=== PATIENT | female | born 1935 | race Caucasian/White ===

== ENCOUNTER 2016-09-05 05:58 | Inpatient (IN) ==
[2016-09-05] MEDS ORDERED: Lidocaine -MPF 1% 2 ML VIAL ID ONE (06:23)
[2016-09-05] MEDS ORDERED: CeFAZolin Pre 2,000 MG/100 ML 2,000 MG/100 ML BAG IVPB ONE (06:23)
[2016-09-05] MEDS ORDERED: Ringers Solution, Lactated 1,000 ML IVC SCH (06:30)
[2016-09-05] MEDS ORDERED: Heparin 1,000 UNITS/500 mL NS 500 ML ONE (06:45)
[2016-09-05] MEDS ORDERED: *HR* Succinylcholine 200 MG/10 ML VIAL IVP ONE (06:49)
[2016-09-05] MEDS ORDERED: Lidocaine -MPF 4% 5 ML AMPUL ONE (06:49)
[2016-09-05] MEDS ORDERED: *HR* Propofol 200 MG/20 ML VIAL IVP ONE (06:49)
[2016-09-05] MEDS ORDERED: Lidocaine -MPF 2% 2 ML VIAL ONE (06:49)
[2016-09-05] MEDS ORDERED: Nitroglycerin 0 MG/0 ML INFUS..BTL IVC ONE (06:53)
[2016-09-05] MEDS ORDERED: NiCARdipine 2.5 MG/10 ML Syringe IVPB ONE (06:54)
[2016-09-05] MEDS ORDERED: *HR* Remifentanil 2 MG VIAL IVP ONE (06:59)
[2016-09-05] MEDS ORDERED: *HR* Phenylephrine 10 MG/ML VIAL ONE (07:01)
[2016-09-05] MEDS ORDERED: *HR* FentaNYL (PF) 100 MCG/2 ML VIAL ONE (07:03)
--- NOTE | 2016-09-05 07:11 | Anesthesia Evaluation PreOp ---
Date of Encounter: 09/05/16 Time of Encounter: 07:08 - Past History Planned Operation: Endograft Repair AAA Cardiac History: HTN, Hyperlipidemia, Arrhythmia (A-Fib), Pacemaker/ICD ([employer] pacemaker), Other (AAA (4.9 cm x 5.2 cm)) Pulmonary History: Denies Any Significant HX RENTAL AGENT History: Denies Any Significant HX Other Medical History: GERD Anesthesia History: No Prior Anesthetic Complications, Past Anesthesia Alcohol Use: none Drug use: unknown Medications and Allergies Acetaminophen [Tylenol Arthritis] 650 mg PO Q8H PRN 01/05/16 [History] Alendronate Sodium [Fosamax] 70 mg PO QWEEK 01/05/16 [History] Atenolol/Chlorthalidone [Tenoretic 100 Tablet] 1 each PO DAILY 01/05/16 [History ] Calcium Carbonate [Calcium] 600 mg PO BID 01/05/16 [History] Cholecalciferol (D-3) [Vitamin D] 2,000 unit PO DAILY 01/05/16 [History] Citalopram [CeleXA] 20 mg PO DAILY 01/05/16 [History] Gabapentin [Neurontin] 300 mg PO TID 01/05/16 [History] Omeprazole [PriLOSEC] 20 mg PO BIDAC 01/05/16 [History] Simvastatin [Zocor] 40 mg PO HS 01/05/16 [History] Warfarin [Coumadin] 4 mg PO [id number] 01/05/16 [History] Warfarin [Coumadin] 6 mg PO SUTH 01/05/16 [History] Amoxicillin/Clavulanate [Augmentin] 500 mg PO BIDWM #20 tablet 04/14/16 [Rx] Chlorpheniramine/Dextromethorp [Coricidin Hbp Cough & Cold Tab] 1 each PO Q6HR PRN #24 tablet 04/14/16 [Rx] Allergies No Known Allergies Allergy (Verified 04/14/16 09:29) - Meds/Allergy Pre-op Review Medications Reviewed: Yes Allergies Reviewed: Yes Beta Blockers on Current Med List: Yes If Beta Blockers taken, Date/Time (Last Dose taken): 09/05/2016 at 0500 Anesthesia Results - Labs Laboratory Tests 08/29/16 08/29/16 08/29/16 09:46 09:46 09:46 WBC 5.5 Hgb 13.8 Hct 41.3 Plt Count 191 PT 19.3 H INR 1.8 APTT 32.4 Sodium 134 L Potassium 3.7 BUN 19 Creatinine 1.01 - Imaging EKG: report reviewed (01/05/2016 A-Fib with RVR, NSST abnormality) Additional studies: 04/09/2013 Echo Impressions: * Atrial fibrillation. * LVEF 50%. * Normal left ventricular structure and function. * Indeterminate diastolic function due to rhythm. * Normal right ventricular structure and function. * Mild to moderate tricuspid regurgitation. * Mild pulmonary hypertension. Anesthesia Exam O2 Sat Height 1.57 m Height 1.57 m Height 1.57 m Weight 90.718 kg Weight 90.718 kg Weight 90.718 kg O2 Sat by Pulse Oximetry 96 O2 Sat by Pulse Oximetry 96 Vital Signs Temp Pulse Resp BP Pulse Ox 97.8 F 73 18 119/72 96 09/05/16 06:41 09/05/16 06:41 09/05/16 06:41 09/05/16 06:41 09/05/16 06:41 Height: 5'2'' Weight: 200 lbs NPO (# of Hours): 8 Pain Scale: 0 Pain Scale Used: Numeric (1 - 10) - HEENT Pupil (Motor): EOMI Mallampati: II Teeth: Edentulous Denture Type: Upper: Complete, Lower: Complete Oral Opening: Greater than 3 - RENTAL AGENT LOC: Oriented RENTAL AGENT Motor: Normal RUE, Normal LUE, Normal RLE, Normal LLE, Normal Face RENTAL AGENT Sensory: Normal: RUE, LUE, Face, Deficit: RLE, LLE - Cardiac Rhythm: Irregular Murmur: None - Pulmonary Breath Sounds: bilateral Clear Respiratory Effort: Symmetrical Anesthesia Assess/Plan ASA Score: 3 Modified [place] Scale for Level of Consciousness: Cooperative, oriented, and tranquil Anesthetic Plan: General Monitoring Plan: Standard Monitors, A-Line Recovery Plan: PACU
[2016-09-05] MEDS ORDERED: Heparin 1,000 UNITS/500 mL NS 1,500 ML ONE (07:20)
--- NOTE | 2016-09-05 07:21 | History & Physical Report ---
Date of Encounter: 09/05/16 Time of Encounter: 07:20 24 Hour HP Update - Instructions Instructions: If the History and Physical is less than 30 days old and was completed prior to A.M. admission and or procedure and has NOT been updated on calendar day of procedure please complete this update prior to performing procedure. - Update Patient reports changes in Medical Condition: No Changes in examination, assessment, or condition: No Changes in Medication: No Preop tests/diagnostics Reviewed: Yes Surgery Remains Indicated: Yes Consent for Planned Operative Procedure(s) Verified: Yes - Pre-Operative Checklist Preoperative Checklist Indicated: Yes Prophylactic Antibiotic Ordered: Yes Home Medications Include Beta Kandace: No Beta Kandace Taken Today (Day of Surgery): No Beta Kandace Taken Yesterday (Day Prior to Surgery): No Is VTE Prophylaxis Indicated?: Yes
[2016-09-05] MEDS ORDERED: *HR* Heparin 5,000 UNIT/ML VIAL ONE (08:55)
[2016-09-05] MEDS ORDERED: *HR* HYDROmorphone (PF) 1 MG/ML SYRINGE IVP PRN (09:38)
[2016-09-05] MEDS ORDERED: *HR* Labetalol 20 MG/4 ML SYRINGE IVP PRN (09:38)
--- NOTE | 2016-09-05 10:09 | Operative Note ---
Date of procedure: 09/05/16 Pre-op diagnosis: AAA Post-op diagnosis: same Procedure: Endovascular Repair of AAA(EVAR) using [employer] Endurant II System with modular bifurcated device (1 docking limb) Bilateral open femoral exposure Catheter placement into aorta, nonselective, bilateral Radiologic supervision and interpretation of endovascular abdominal aortic aneurysm repair Complications: none Anesthesia: GETA Surgeon: Casper Avendano Co-Surgeon: Kevin Gonzalez Estimated blood loss (cc): 100 Specimen: none Condition: stable Disposition: PACU Procedure in Detail: History Bibi Lora is an 80-year-old white female who has an abdominal aortic aneurysm that measures approximately 6 cm in diameter. This aneurysm has increased in size. The patient is on lifelong anticoagulation with Coumadin. Because of the size of the aneurysm and her anticoagulation status the patient was recommended to undergo elective endovascular repair of the abdominal aortic aneurysm. The patient now comes for this procedure. The patient does have multiple comorbidities. Procedure After informed consent was obtained the patient was taken to the operating room. General endotracheal anesthesia was established under arterial line pressure monitoring. The abdomen and groins and upper thighs were sterilely prepped and draped. A timeout protocol was observed. A 2 team surgical approach was needed for this procedure due to the patient's comorbidities and in an attempt to try to reduce the patient's. Anesthetic time and decrease blood loss as well as to facilitate complex intraoperative decision making. The common femoral arteries were exposed through oblique incisions in the groins bilaterally. Controls obtained with Vesseloops proximally and distally. The vessels were soft with excellent pulses. With this done 18-gauge needle was then punctured and a guidewire was advanced retrograde from both the left and right side. This was followed by an 8 [place] sheath and dilator. The dilator was removed and the sheath was aspirated and flushed. Heparin was administered and dose of 5000 units intravenously. A marker pigtail catheter was advanced from the right side. An aortogram was then obtained to clarify the anatomy and to ghassan the iliac bifurcation as well as the renal artery locations. With this done an Amplatz wire was exchanged through the pigtail catheter. The pigtail catheter was then placed via the left groin into the aorta. The main body device was 28 x 16 x 145 mm. This was placed via the right side and secured in an infrarenal location. The suprarenal fixation was also performed with an open stent. The covered stent graft was then deployed to the point that the docking limb was exposed. At this point the device was then cannulated from the left side. Appropriate positioning of the wire and cannulation was confirmed with the use of a contrast injection. The docking device was then selected to be a 16 x 16 x 124 mm. This was deployed into the docking portion of the main body and was extended to the distal aspect of the left common iliac artery. This was then deployed and full. The carrying device was removed and 11 [place] sheath was then inserted in the left groin. Attention was then directed back to the right side. The right main body was then completely deployed. The top cap was re -position and then the device was removed and 11 [place] sheath placed on the right groin. Balloons were then passed from both the right and left side. The stent graft was then gently expanded with the use of the balloon. A completion aortogram was then performed via pigtail catheter positioned at the suprarenal location. This demonstrated patent renal arteries bilaterally and patent iliac bifurcations bilaterally. A type II endoleak was identified through lumbar vessels. The graft itself appeared to be in excellent position and there were no complications associated with the graft. With this information although the remaining devices were then removed. The puncture sites in the groin were closed using 6-0 Prolene suture. After appropriate backbleeding and flushing the pelvic arteries were then opened and pulsatile flow was restored to the lower extremities. Excellent pulses were identified at the groin and confirmed with the use of Doppler. The wounds were then copiously irrigated with antibiotic containing solution. Hemostasis was achieved. The incisions were then closed in layers using absorbable suture. Dry sterile dressings were applied. The patient was excreted in the operating room and taken to the recovery room in stable condition. Estimated blood loss 100 mL.
--- NOTE | 2016-09-05 10:44 | Anesthesia Evaluation Post Op ---
Date of Encounter: 09/05/16 Time of Encounter: 10:43 - Vital Signs Vital Signs: Vital Signs/O2 Sat, Most Current Temp Pulse Resp BP Pulse Ox 97.7 F 61 16 149/93 100 09/05/16 10:14 09/05/16 10:34 09/05/16 10:34 09/05/16 10:34 09/05/16 10:34 - Lungs Lungs: Clear Ascult./Percussion - Airway Airway: Non-obstructed - Cardiovascular Irregular Rate, Baseline Rhythm - Mental Status Mental Status: Alert & Oriented, Answers Appropriately - Pain Pain Scale: 0 Pain Scale used: Numeric (1 - 10) - Nausea Vomiting Nausea Vomiting: Not Present - Hydration Hydration: Ice chips, Peter catheter - Discharge PostOp Status: Transfer Patient to floor
[2016-09-05] MEDS ORDERED: *HR* HYDROcodone/Acet 5/325 mg TABLET PO PRN (11:15)
[2016-09-05] MEDS ORDERED: Ondansetron 4 MG/2 ML VIAL IVP PRN (11:15)
[2016-09-05] MEDS ORDERED: *HR* Morphine 2 MG/ML SYRINGE IVP PRN ×2 (11:15)
[2016-09-05] MEDS ORDERED: Naloxone 0.4 MG/ML INJ IVP PRN (11:15)
[2016-09-05] MEDS ORDERED: Acetaminophen 325 MG TABLET PO PRN (11:15)
--- NOTE | 2016-09-05 15:16 | Operative Note ---
Date of procedure: 09/05/16 Pre-op diagnosis: 6cm Infrarenal Abdominal Aortic Aneurysm Post-op diagnosis: same Procedure: 1. Introduction of catheter into the aorta via right common femoral artery. 2. Introduction of catheter into the aorta via left common femoral artery. 3. Right femoral vessel exposure for endograft placement. 4. Left femoral vessel exposure for endograft placement. 5. [employer] Endurant modular bifurcated aortic endograft placement with 1 docking limb including radiologic supervision and interpretation. Complications: None Anesthesia: GETA Surgeon: Kevin Gonzalez Co-Surgeon: Casper Avendano Estimated blood loss (cc): 100 Specimen: None Condition: stable Disposition: PACU Procedure in Detail: Indications: The patient is an 80 year old female with a history of atrial fibrillation, hyperlipidemia, hypertension and coronary artery disease. She was found to have a 6cm infrarenal abdominal aortic aneurysm. Her aneurysm anatomy was acceptable for endograft placement. Surgery was recommended to reduce her risk of rupture. Procedure: The patient was identified, brought to the operating room and placed in the supine position on the operating room table. After induction of general endotracheal anesthesia, the patient was cleaned and draped in normal sterile fashion. A two surgeon approach was utilized for this procedure in order to minimize anesthetic time and the risks for complications due to the patients advanced age and comorbid conditions. In addition, a two surgeon approach was used for intraoperative decision making. Oblique incisions were made over both groins sharply. Hemostasis was obtained with electrocautery. Using blunt and sharp and electrocautery dissection, the bilateral common, deep and superficial femoral arteries were dissected circumferentially and surrounded with Vesseloops. At this point, the patient received heparin intravenously and then bilateral femoral punctures with large-bore needles were performed. Bentson wires were advanced into the aorta under fluoroscopic view. Given the anatomy, the main body was selected to be the right side in this patient. The needles were exchanged for bilateral sheaths and a long Pigtail catheter was advanced over the right wire into the aortic arch. The wire was removed and an angiogram was then performed via a pigtail catheter for sizing of the graft. The wire was replaced with a stiff wire. The catheter was removed and repositioned in the suprarenal aorta via the left femoral artery. The main body was inserted over the stiff wire with the contralateral limb being in the ipsilateral position. An aortogram was then performed at the level of the renal artery. The graft was positioned just inferior to the renal arteries and the first 2 segments were deployed. Again an aortogram revealed adequate infrarenal placement. The graft was then further opened to the contralateral limb exposed. A final angiogram was performed confirming adequate infrarenal placement. The suprarenal stent was deployed in the usual fashion. The contralateral limb was then selected with a wire using a guiding catheter. Intragraft placement of the wire was confirmed by placing the pigtail and spinning it freely. An oblique view of the pelvis was performed with contrast to size the left extension limb. The sheath was removed and exchanged for the appropriate limb, which was advanced under fluoroscopic view and positioned. It was then expanded. The introducer and graft sheath were exchanged for a sheath. An oblique view of the right pelvis was performed and it was determined that the main body was of sufficient length to create an adequate seal in the right common iliac artery. Therefore a right extension limb was not needed. A Reliant balloon was then advanced into the graft proximal and distal endpoints as well as overlap were expanded with gentle pressure. A Flush completion angiogram revealed a small, late filling type 2 endoleak. Tension was applied to the Vesseloops in the groin. The sheaths and wires were then removed. The bilateral arteriotomies were repaired with a running 6-0 Prolene. Antibiotic irrigation was infused into the groin. The bilateral groins incisions were closed with 2-0 Vicryl, 3-0 Vicryl and 4-0 Vicryl. Sterile dressings were applied. The patient was then extubated and taken to the recovery room in stable condition. Graft Sizes: 1. Main Body: 2816 x 145 2. Left extension limb: 1616 x 124
[2016-09-05] MEDS: ceFAZolin 2,000 MG in D5% in Water 100 ML IVPB SCH (16:27)
[2016-09-06] MEDS: ceFAZolin 2,000 MG in D5% in Water 100 ML IVPB SCH ×2 (00:30→08:49)
[2016-09-06 04:47] LABS: Basophils % 0.2 %; Eosinophils % 0.2 %; Hematocrit 36.3 % (35.3-44.9); Hemoglobin 12.2 g/dL (11.5-15.4); Immature Granulocytes % 0.3 % (0-4); Lymphocytes # 1.8 K/mcL (0.6-4.6); Lymphocytes % 15.1 %; Mean Corpuscular HGB Conc 33.6 g/dL (31.6-35.5); Mean Corpuscular Hemoglobin 33.8 pg (28.0-33.3); Mean Corpuscular Volume 100.6 fL (83.0-100.0); Mean Platelet Volume 10.5 fL (9.4-12.4); Monocytes % 8.7 %; Neutrophils # 8.8 K/mcL (1.6-8.9); Platelet Count 149 K/mcL (140-400); Red Blood Count 3.61 M/mcL (3.82-4.97); Segmented Neutrophils % 75.5 %
[2016-09-06 05:03] LABS: BUN/Creatinine Ratio 20 (6-26); Blood Urea Nitrogen 18 mg/dL (7-20); Calcium 9.2 mg/dL (8.6-10.8); Carbon Dioxide 26 mEq/L (19-29); Chloride 100 mEq/L (98-109); Glucose 103 mg/dL (70-99); Osmolality,Calculated 280 (280-300); Potassium 3.6 mEq/L (3.5-4.5); Sodium 134 mEq/L (136-145); eGFR For African Americans > 60 (> 60); eGFR For Non-African Americans 59 (> 60)
[2016-09-06] MEDS ORDERED: CHLORTHALIDONE PO SCH (09:00)
[2016-09-06] MEDS ORDERED: Cholecalciferol (D-3) 1,000 UNIT TABLET PO SCH (09:00)
[2016-09-06] MEDS ORDERED: ATENOLOL PO SCH (09:00)
[2016-09-06 14:01] VITALS: BP 137/74
--- NOTE | 2016-09-06 14:07 | Discharge Summary ---
Date of Encounter: 09/06/16 Time of Encounter: 14:05 - Discharge Diagnosis (1) AAA (abdominal aortic aneurysm) Priority: Primary Status: Acute Comments: Patient has 6 cm abdominal aortic aneurysm. Patient had endovascular repair performed successfully. Qualifiers: Presence of rupture: without rupture Qualified Code(s): I71.4 - Abdominal aortic aneurysm, without rupture (2) Atrial fibrillation with RVR Priority: Secondary Status: Chronic Comments: Patient under medical treatment for atrial fibrillation. (3) Hypertension Priority: Secondary Status: Chronic Comments: Patient under chronic medical care for hypertension Qualifiers: Hypertension type: essential hypertension Qualified Code(s): I10 - Essential (primary) hypertension - Discharge Medications Home Medications: Acetaminophen [Tylenol Arthritis] 650 mg PO Q8H PRN 01/05/16 [History] Alendronate Sodium [Fosamax] 70 mg PO VALERIO 01/05/16 [History] Atenolol/Chlorthalidone [Tenoretic 100 Tablet] 1 each PO DAILY 01/05/16 [History ] Calcium Carbonate [Calcium] 600 mg PO BID 01/05/16 [History] Cholecalciferol (D-3) [Vitamin D] 2,000 unit PO DAILY 01/05/16 [History] Citalopram [CeleXA] 20 mg PO DAILY 01/05/16 [History] Omeprazole [PriLOSEC] 20 mg PO BID 01/05/16 [History] Simvastatin [Zocor] 40 mg PO HS 01/05/16 [History] Warfarin [Coumadin] 4 mg PO DAILY 01/05/16 [History] Oxazepam [Serax] 15 mg PO HS PRN 09/05/16 [History] Allergies/Adverse Reactions: Allergies No Known Allergies Allergy (Verified 09/05/16 07:26) *PATIENT STATES SHE HAD A REACTION TO A VAGINAL CREAM ONCE WITH HIVES ON HER LEGS SHE WAS UNABLE TO STATE WHICH CREAM EXACTLY Date of admission: 09/05/16 10:58 Primary care physician: Alexandre Cantu MD Consults: 09/05/16 11:15 Consult to [employer] [CONS] Routine Reason for SW Consult: assess for expanded need for home health assistance Procedure(s) Performed: Endovascular repair of abdominal aortic aneurysm Discharging clinician: Casper Avendano Anticipated date of discharge: 09/06/16 - Patient Status Disposition: Home, Self-Care Condition: Fair Functional capacity at discharge: uses cane/walker Overall status at discharge: patient is progressing back to baseline - Discharge Instructions Follow Up With: Casper Avendano MD [Partnered Physician] - 09/27/16 1:30 pm Alexandre Cantu MD [Primary Care Provider] - 09/12/16 3:45 pm () Additional Instructions: Keep groin incisions dry for total of 5 days following surgery. Patient may ambulate with walker and cane on a when necessary basis. Patient is to resume her usual home medications. Patient is to resume Coumadin tomorrow. - Diet and Activity Activity: ambulate only with your walker Diet: advance to your usual diet - Hospital Course Hospital course: Ms. Lora is a 80 year old female With a 6 cm abdominal aortic aneurysm and chronic anticoagulation because of atrial arrhythmias. The patient was admitted for elective repair of an abdominal aortic aneurysm via an endovascular technique. The patient tolerated procedure well. There were no periprocedural complications. The patient's Coumadin will be restarted on postoperative day #2. Instructions regards to diet and excising medications were reviewed with the patient prior to discharge. - Time Spent with Patient Total time spent providing and/or coordinating discharge services: Exam Vital Signs, Last 4 Hours Temp Pulse Resp BP Pulse Ox 09/06/16 13:58 97.8 F 93 14 137/74 98 09/06/16 12:00 97.5 F L 89 18 133/69 09/06/16 11:00 98.7 F 84 18 129/84 96 09/06/16 10:14 98.7 F 84 18 129/84 96 General: Present: Conversant, No Apparent Distress, Well developed, Well nourished HEENT: Present: Atraumatic Neck: Absent: JVD Neuro: Present: Alert and responsive, No focal deficits noted Abdomen: Present: Soft, Non-tender. Absent: Hepatosplenomegaly Vascular: Present: Pulse, normal, Surgical incisions (Groin incisions are clean and dry). Absent: Cyanosis Skin: Present: No rashes noted on visualized skin - VTE Documentation of Mechanical Device: Intermittent pneumatic compression device
== END 2016-09-06 15:00 | disposition home or self-care (01) | DRG 269 ==
LOC: SAMDAY 05:58 → 2NNU 10:58
PROVIDERS: ADMIT Surgery Vascular Surgery; ATTEND Surgery Vascular Surgery

== ENCOUNTER 2019-04-23 15:27 | Inpatient (IN) ==
[2019-04-23] MEDS ORDERED: Isovue-370 500 ML BOTTLE IVP ONE ×2 (16:11→16:14)
[2019-04-23 16:30] LABS: Basophils % 0.3 %; Eosinophils % 0.5 %; Hematocrit 39.5 % (35.3-44.9); Hemoglobin 13.3 g/dL (11.5-15.4); Immature Granulocytes % 0.5 % (0-4); Lymphocytes # 0.9 K/mcL (0.6-4.6); Lymphocytes % 14.6 %; Mean Corpuscular HGB Conc 33.7 g/dL (31.6-35.5); Mean Corpuscular Hemoglobin 33.3 pg (28.0-33.3); Mean Corpuscular Volume 98.8 fL (83.0-100.0); Mean Platelet Volume 9.8 fL (9.4-12.4); Monocytes # 0.6 K/mcL (0.0-1.3); Monocytes % 9.2 %; Neutrophils # 4.7 K/mcL (1.6-8.9); Platelet Count 142 K/mcL (140-400); Red Cell Distribution Width 13.3 % (11.5-14.5); Segmented Neutrophils % 74.9 %; White Blood Count 6.3 K/mcL (4.3-11.1)
[2019-04-23 16:40] LABS: INR 1.1; Prothrombin Time 12.2 Seconds (9.4-12.1)
[2019-04-23 16:44] LABS: Bilirubin,Urine Negative (Negative); Blood,Urine Negative (Negative); Clarity,Urine Cloudy (Clear); Color,Urine Yellow (Yellow); Glucose,Urine (UA) Normal (Normal); Ketones,Urine Negative (Negative); Leukocyte Esterase,Urine Moderate (Negative); Nitrite,Urine Negative (Negative); PH,Urine 6.5 pH Units (5.0-8.0); Protein,Urine 100 mg/dL (Neg-Trace); Specific Gravity,Urine > 1.030 (1.010-1.025); Urobilinogen,Urine Normal (Normal)
[2019-04-23 16:47] LABS: Bacteria,Urine Few per hpf (None-Few); Hyaline Casts,Urine Few per lpf (None-Few); Squamous Epithelial Cell,Urine Many per lpf (None-Few); WBC,Urine 30-50 per hpf (0-3)
[2019-04-23 16:54] LABS: BUN/Creatinine Ratio 39 (6-26); Blood Urea Nitrogen 27 mg/dL (8-23); Calcium 9.3 mg/dL (8.6-10.3); Carbon Dioxide 24 mEq/L (23-29); Chloride 101 mEq/L (98-107); Glucose 94 mg/dL (70-105); Osmolality,Calculated 283 (280-300); Potassium 3.4 mEq/L (3.5-5.1); Sodium 134 mEq/L (136-145); eGFR For African Americans > 60 (> 60); eGFR For Non-African Americans > 60 (> 60)
[2019-04-23 17:29] LABS: Troponin I < 0.03 ng/mL (< 0.04)
[2019-04-23] MEDS ORDERED: cefTRIAXone 1,000 MG in Water for inj. (sterile) 10 ML IVP ONE (17:40)
[2019-04-23] MEDS ORDERED: Acetaminophen 325 MG TABLET PO PRN (21:46)
[2019-04-23] MEDS ORDERED: Naloxone 0.4 MG/ML INJ IVP PRN (21:47)
[2019-04-23] MEDS ORDERED: Ringers Solution, Lactated 1,000 ML IVC SCH (23:45)
[2019-04-23] MEDS ORDERED: *HR* OxyCODONE Immed Rel 5 MG TABLET PO PRN (23:54)
[2019-04-24] MEDS: *HR* Heparin 5,000 UNIT/ML VIAL SQ SCH ×2 (05:19→19:00)
[2019-04-24] MEDS: Cholecalciferol (D-3) 1,000 UNIT (25MCG) TABLET PO SCH (09:54)
[2019-04-24] MEDS: Cefepime HCl 1,000 MG in Water for inj. (sterile) 10 ML IVP SCH ×2 (12:04→18:58)
[2019-04-24] MEDS ORDERED: Cefepime HCl 2,000 MG in 0.9 % Sodium Chloride Mini Bag 100 ML IVPB ONE (18:22)
[2019-04-24] MEDS: Gabapentin 100 MG CAPSULE PO SCH (20:58)
[2019-04-25 05:11] LABS: BUN/Creatinine Ratio 23 (6-26); Blood Urea Nitrogen 14 mg/dL (8-23); Calcium 9.3 mg/dL (8.6-10.3); Carbon Dioxide 25 mEq/L (23-29); Chloride 100 mEq/L (98-107); Glucose 91 mg/dL (70-105); Magnesium 1.6 mg/dL (1.6-2.6); Osmolality,Calculated 276 (280-300); Phosphorous 2.7 mg/dL (2.7-4.5); Potassium 3.4 mEq/L (3.5-5.1); Sodium 133 mEq/L (136-145); eGFR For African Americans > 60 (> 60); eGFR For Non-African Americans > 60 (> 60)
[2019-04-25] MEDS: Cefepime HCl 1,000 MG in Water for inj. (sterile) 10 ML IVP SCH (05:12)
[2019-04-25] MEDS: *HR* Heparin 5,000 UNIT/ML VIAL SQ SCH ×2 (05:15→17:52)
[2019-04-25] MEDS ORDERED: Aminoglycoside Consult 1 EACH MC ONE (08:13)
[2019-04-25] MEDS: Cholecalciferol (D-3) 1,000 UNIT (25MCG) TABLET PO SCH (11:20)
[2019-04-25] MEDS: Gabapentin 100 MG CAPSULE PO SCH (21:20)
[2019-04-26 05:22] LABS: Basophils % 0.5 %; Eosinophils # 0.1 K/mcL (0.0-0.6); Eosinophils % 1.9 %; Hematocrit 43.2 % (35.3-44.9); Hemoglobin 14.6 g/dL (11.5-15.4); Immature Granulocytes % 0.9 % (0-4); Lymphocytes # 1.7 K/mcL (0.6-4.6); Lymphocytes % 26.2 %; Mean Corpuscular HGB Conc 33.8 g/dL (31.6-35.5); Mean Corpuscular Hemoglobin 32.8 pg (28.0-33.3); Mean Platelet Volume 10.1 fL (9.4-12.4); Monocytes % 16.3 %; Neutrophils # 3.5 K/mcL (1.6-8.9); Platelet Count 164 K/mcL (140-400); Red Blood Count 4.45 M/mcL (3.82-4.97); Red Cell Distribution Width 13.4 % (11.5-14.5); Segmented Neutrophils % 54.2 %; White Blood Count 6.4 K/mcL (4.3-11.1)
[2019-04-26 05:24] LABS: Mean Corpuscular Volume 97.1 fL (83.0-100.0)
[2019-04-26 05:45] LABS: BUN/Creatinine Ratio 24 (6-26); Blood Urea Nitrogen 18 mg/dL (8-23); Calcium 9.9 mg/dL (8.6-10.3); Carbon Dioxide 25 mEq/L (23-29); Chloride 99 mEq/L (98-107); Glucose 105 mg/dL (70-105); Magnesium 1.8 mg/dL (1.6-2.6); Osmolality,Calculated 278 (280-300); Phosphorous 2.8 mg/dL (2.7-4.5); Potassium 4.1 mEq/L (3.5-5.1); Sodium 133 mEq/L (136-145); eGFR For African Americans > 60 (> 60); eGFR For Non-African Americans > 60 (> 60)
[2019-04-26] MEDS: *HR* Heparin 5,000 UNIT/ML VIAL SQ SCH ×2 (05:58→17:03)
[2019-04-26] MEDS: Cholecalciferol (D-3) 1,000 UNIT (25MCG) TABLET PO SCH (08:59)
[2019-04-26] MEDS: Gabapentin 100 MG CAPSULE PO SCH (20:18)
[2019-04-27 05:51] LABS: Basophils % 0.5 %; Eosinophils # 0.1 K/mcL (0.0-0.6); Eosinophils % 1.2 %; Hematocrit 43.9 % (35.3-44.9); Hemoglobin 14.3 g/dL (11.5-15.4); Immature Granulocytes % 0.8 % (0-4); Lymphocytes # 1.6 K/mcL (0.6-4.6); Lymphocytes % 19.5 %; Mean Corpuscular HGB Conc 32.6 g/dL (31.6-35.5); Mean Corpuscular Hemoglobin 32.7 pg (28.0-33.3); Mean Corpuscular Volume 100.5 fL (83.0-100.0); Monocytes # 1.1 K/mcL (0.0-1.3); Neutrophils # 5.5 K/mcL (1.6-8.9); Platelet Count 170 K/mcL (140-400); Red Blood Count 4.37 M/mcL (3.82-4.97); Red Cell Distribution Width 13.3 % (11.5-14.5); White Blood Count 8.4 K/mcL (4.3-11.1)
[2019-04-27] MEDS: *HR* Heparin 5,000 UNIT/ML VIAL SQ SCH ×2 (06:08→15:51)
[2019-04-27 06:11] LABS: BUN/Creatinine Ratio 26 (6-26); Blood Urea Nitrogen 24 mg/dL (8-23); Calcium 10.1 mg/dL (8.6-10.3); Carbon Dioxide 28 mEq/L (23-29); Chloride 96 mEq/L (98-107); Glucose 103 mg/dL (70-105); Osmolality,Calculated 278 (280-300); Potassium 3.9 mEq/L (3.5-5.1); Sodium 132 mEq/L (136-145); eGFR For African Americans > 60 (> 60); eGFR For Non-African Americans 59 (> 60)
[2019-04-27] MEDS ORDERED: Isovue-370 500 ML BOTTLE IVP ONE (09:09)
[2019-04-27] MEDS ORDERED: *HR* LORazepam 2 MG/ML VIAL IVP ONE ×2 (09:20→17:28)
[2019-04-27] MEDS: Cholecalciferol (D-3) 1,000 UNIT (25MCG) TABLET PO SCH (09:54)
[2019-04-27] MEDS: 0.9 % Sodium Chloride 1,000 ML IVC SCH (12:01)
[2019-04-27] MEDS: Aspirin Enteric Coated 81 MG Tablet PO SCH (12:06)
[2019-04-27] MEDS: cefTRIAXone 2,000 MG in 0.9 % Sodium Chloride Mini Bag 100 ML IVPB SCH (17:26)
[2019-04-27] MEDS: Ampicillin 2 GM in 0.9 % Sodium Chloride Mini Bag 100 ML IVPB SCH ×2 (17:46→23:42)
[2019-04-27] MEDS: Gabapentin 100 MG CAPSULE PO SCH (20:46)
[2019-04-27] MEDS ORDERED: NON-FORMULARY MEDICATION 1 EACH EACH (Alendronate Sodium [Fosamax] 70 MG) PO SCH (21:46)
[2019-04-28] MEDS: 0.9 % Sodium Chloride 1,000 ML IVC SCH ×2 (01:41→10:40)
[2019-04-28 04:58] LABS: Hemoglobin 13.7 g/dL (11.5-15.4); Mean Corpuscular HGB Conc 33.4 g/dL (31.6-35.5); Mean Corpuscular Hemoglobin 32.8 pg (28.0-33.3); Mean Corpuscular Volume 98.1 fL (83.0-100.0); Mean Platelet Volume 10.1 fL (9.4-12.4); Platelet Count 172 K/mcL (140-400); Red Blood Count 4.18 M/mcL (3.82-4.97); Red Cell Distribution Width 13.1 % (11.5-14.5); White Blood Count 7.7 K/mcL (4.3-11.1)
[2019-04-28 05:15] LABS: BUN/Creatinine Ratio 31 (6-26); Blood Urea Nitrogen 17 mg/dL (8-23); Calcium 9.1 mg/dL (8.6-10.3); Carbon Dioxide 21 mEq/L (23-29); Chloride 100 mEq/L (98-107); Glucose 106 mg/dL (70-105); Osmolality,Calculated 276 (280-300); Potassium 3.6 mEq/L (3.5-5.1); Sodium 132 mEq/L (136-145); eGFR For African Americans > 60 (> 60); eGFR For Non-African Americans > 60 (> 60)
[2019-04-28] MEDS: *HR* Heparin 5,000 UNIT/ML VIAL SQ SCH ×2 (05:57→17:49)
[2019-04-28] MEDS: Ampicillin 2 GM in 0.9 % Sodium Chloride Mini Bag 100 ML IVPB SCH ×5 (05:57→23:30)
[2019-04-28] MEDS: cefTRIAXone 2,000 MG in 0.9 % Sodium Chloride Mini Bag 100 ML IVPB SCH ×2 (06:29→17:49)
[2019-04-28] MEDS: Aspirin Enteric Coated 81 MG Tablet PO SCH (09:07)
[2019-04-28] MEDS: Cholecalciferol (D-3) 1,000 UNIT (25MCG) TABLET PO SCH (09:07)
[2019-04-28] MEDS: D5% in 0.45% NACL w KCl 20 MEQ/1,000 ML MLS IVC SCH (12:43)
[2019-04-28 13:42] LABS: Adenovirus Not Detected (Not Detect); Bordetella Pertussis Not Detected (Not Detect); Chlamydophila pneumoniae Not Detected (Not Detect); Coronavirus 229E Not Detected (Not Detect); Coronavirus HKU1 Not Detected (Not Detect); Coronavirus NL63 Not Detected (Not Detect); Coronavirus OC43 Not Detected (Not Detect); Human Metapneumovirus Not Detected (Not Detect); Human Rhinovirus/Enterovirus Not Detected (Not Detect); Influenza A Subtype 2009 H1 Not Detected (Not Detect); Influenza B Not Detected (Not Detect); Mycoplasma pneumoniae Not Detected (Not Detect); Parainfluenza Virus 1 Not Detected (Not Detect); Parainfluenza Virus 2 Not Detected (Not Detect); Parainfluenza Virus 3 Not Detected (Not Detect); Parainfluenza Virus 4 Not Detected (Not Detect); Respiratory Syncytial Virus DETECTED (Not Detect)
[2019-04-28 16:10] LABS: Red Blood Cell,CSF < 0.002 M/mcL
[2019-04-28 16:35] LABS: Glucose,CSF 56 mg/dL (40-70); Total Protein,CSF 68 mg/dL (15-45)
[2019-04-28 16:55] LABS: Appearance,CSF Clear (Clear); Basophils,CSF 0 %; Eosinophils,CSF 0 %
[2019-04-28] MEDS: Acyclovir 500 MG in D5% in Water 100 ML IVPB SCH ×2 (17:20→22:39)
[2019-04-29 02:01] LABS: Hematocrit 40.5 % (35.3-44.9); Hemoglobin 13.8 g/dL (11.5-15.4); Mean Corpuscular HGB Conc 34.1 g/dL (31.6-35.5); Mean Corpuscular Hemoglobin 32.4 pg (28.0-33.3); Mean Corpuscular Volume 95.1 fL (83.0-100.0); Platelet Count 181 K/mcL (140-400); Red Blood Count 4.26 M/mcL (3.82-4.97); Red Cell Distribution Width 12.9 % (11.5-14.5); White Blood Count 8.7 K/mcL (4.3-11.1)
[2019-04-29 02:24] LABS: BUN/Creatinine Ratio 21 (6-26); Blood Urea Nitrogen 12 mg/dL (8-23); Calcium 9.1 mg/dL (8.6-10.3); Carbon Dioxide 23 mEq/L (23-29); Chloride 99 mEq/L (98-107); Glucose 132 mg/dL (70-105); Osmolality,Calculated 274 (280-300); Potassium 3.6 mEq/L (3.5-5.1); Sodium 131 mEq/L (136-145); eGFR For African Americans > 60 (> 60); eGFR For Non-African Americans > 60 (> 60)
[2019-04-29] MEDS: D5% in 0.45% NACL w KCl 20 MEQ/1,000 ML MLS IVC SCH ×2 (04:12→16:26)
[2019-04-29] MEDS: Ampicillin 2 GM in 0.9 % Sodium Chloride Mini Bag 100 ML IVPB SCH ×6 (04:15→22:33)
[2019-04-29] MEDS: cefTRIAXone 2,000 MG in 0.9 % Sodium Chloride Mini Bag 100 ML IVPB SCH ×2 (05:10→17:52)
[2019-04-29] MEDS: *HR* Heparin 5,000 UNIT/ML VIAL SQ SCH ×2 (06:22→17:53)
[2019-04-29] MEDS: Acyclovir 500 MG in D5% in Water 100 ML IVPB SCH ×3 (08:01→23:53)
[2019-04-29] MEDS: Aspirin Enteric Coated 81 MG Tablet PO SCH (08:02)
[2019-04-29] MEDS: Cholecalciferol (D-3) 1,000 UNIT (25MCG) TABLET PO SCH (08:02)
[2019-04-30] MEDS: Ampicillin 2 GM in 0.9 % Sodium Chloride Mini Bag 100 ML IVPB SCH ×3 (02:23→12:57)
[2019-04-30] MEDS: D5% in 0.45% NACL w KCl 20 MEQ/1,000 ML MLS IVC SCH ×3 (05:07→20:02)
[2019-04-30] MEDS: *HR* Heparin 5,000 UNIT/ML VIAL SQ SCH ×2 (05:08→17:38)
[2019-04-30] MEDS: cefTRIAXone 2,000 MG in 0.9 % Sodium Chloride Mini Bag 100 ML IVPB SCH (05:08)
[2019-04-30 06:05] LABS: BUN/Creatinine Ratio 20 (6-26); Blood Urea Nitrogen 12 mg/dL (8-23); Calcium 9.4 mg/dL (8.6-10.3); Carbon Dioxide 25 mEq/L (23-29); Chloride 98 mEq/L (98-107); Glucose 110 mg/dL (70-105); Osmolality,Calculated 278 (280-300); Potassium 3.2 mEq/L (3.5-5.1); Sodium 134 mEq/L (136-145); eGFR For African Americans > 60 (> 60); eGFR For Non-African Americans > 60 (> 60)
[2019-04-30] MEDS: Cholecalciferol (D-3) 1,000 UNIT (25MCG) TABLET PO SCH (08:14)
[2019-04-30] MEDS: Aspirin Enteric Coated 81 MG Tablet PO SCH (08:14)
[2019-04-30] MEDS: Acyclovir 500 MG in D5% in Water 100 ML IVPB SCH (08:36)
[2019-04-30] MEDS ORDERED: Potassium Chloride Elixir 20 MEQ/15 ML UDC PO ONE (13:44)
[2019-04-30] MEDS: Cefepime HCl 2,000 MG in Water for inj. (sterile) 20 ML IVP SCH (14:07)
[2019-04-30] MEDS ORDERED: *HR* Warfarin 3 MG TABLET PO ONE (18:00)
[2019-04-30] MEDS ORDERED: Warfarin perPT PO PRN (18:00)
[2019-05-01] MEDS: Cefepime HCl 2,000 MG in Water for inj. (sterile) 20 ML IVP SCH (05:31)
[2019-05-01] MEDS: *HR* Heparin 5,000 UNIT/ML VIAL SQ SCH (05:32)
[2019-05-01 05:34] LABS: Basophils % 0.3 %; Eosinophils # 0.2 K/mcL (0.0-0.6); Eosinophils % 1.8 %; Hematocrit 37.8 % (35.3-44.9); Hemoglobin 12.8 g/dL (11.5-15.4); Immature Granulocytes % 0.5 % (0-4); Lymphocytes # 0.9 K/mcL (0.6-4.6); Lymphocytes % 10.1 %; Mean Corpuscular HGB Conc 33.9 g/dL (31.6-35.5); Mean Corpuscular Hemoglobin 33.1 pg (28.0-33.3); Mean Corpuscular Volume 97.7 fL (83.0-100.0); Mean Platelet Volume 9.7 fL (9.4-12.4); Monocytes # 1.2 K/mcL (0.0-1.3); Monocytes % 13.2 %; Neutrophils # 6.5 K/mcL (1.6-8.9); Platelet Count 182 K/mcL (140-400); Red Blood Count 3.87 M/mcL (3.82-4.97); Red Cell Distribution Width 12.9 % (11.5-14.5); Segmented Neutrophils % 74.1 %; White Blood Count 8.8 K/mcL (4.3-11.1)
[2019-05-01] MEDS: D5% in 0.45% NACL w KCl 20 MEQ/1,000 ML MLS IVC SCH (05:39)
[2019-05-01 05:44] LABS: Prothrombin Time 11.6 Seconds (9.4-12.1)
[2019-05-01 06:14] LABS: BUN/Creatinine Ratio 20 (6-26); Blood Urea Nitrogen 11 mg/dL (8-23); Calcium 9.4 mg/dL (8.6-10.3); Carbon Dioxide 24 mEq/L (23-29); Chloride 100 mEq/L (98-107); Glucose 121 mg/dL (70-105); Magnesium 1.6 mg/dL (1.6-2.6); Osmolality,Calculated 275 (280-300); Phosphorous 2.4 mg/dL (2.7-4.5); Potassium 3.2 mEq/L (3.5-5.1); Sodium 132 mEq/L (136-145); eGFR For African Americans > 60 (> 60); eGFR For Non-African Americans > 60 (> 60)
[2019-05-01 08:35] LABS: Enterovirus RNA Qual (PCR) NOT DETECTED
[2019-05-01] MEDS ORDERED: DilTIAZem CD (24hr) 120 MG CAP.ER.24H PO SCH (09:00)
[2019-05-01] MEDS: Cholecalciferol (D-3) 1,000 UNIT (25MCG) TABLET PO SCH (09:24)
[2019-05-01] MEDS: Aspirin Enteric Coated 81 MG Tablet PO SCH (09:24)
[2019-05-01 09:32] LABS: HSV Source CSF
[2019-05-01 15:25] VITALS: BP 131/86
[2019-05-01] MEDS ORDERED: Aminoglycoside Consult 1 EACH MC ONE (17:12)
[2019-05-01] MEDS ORDERED: *HR* Warfarin 4 MG TABLET PO ONE (18:00)
[2019-05-02 09:44] LABS: Cytomegalovirus DNA (PCR) NOT DETECTED
== END 2019-05-01 17:13 | disposition other institution (70) | DRG 539 ==
LOC: EMEROOARM 15:27 → 3BNU 15:27 → SUATTDRO 20:30 → 3BNU 21:29
PROVIDERS: ADMIT Family Medicine; ATTEND Internal Medicine